=== PATIENT | male | born 2000 | race Caucasian/White ===

== ENCOUNTER 2021-11-30 11:24 | Emergency (ER) | payer OTHER ==
[~2021-11-30] VITALS: Ht 177.8 cm; Wt 91.2 kg
[2021-11-30] MEDS ORDERED: NS 1,000 ML IV ONE (13:05)
[2021-11-30] MEDS ORDERED: ISOVUE-370 76% 100ML VIAL As Ordered ONE (14:31)
[2021-11-30 14:32] LABS: BASO % 0.5 % (0.0-1.0); EOS % 0.5 % (0.0-3.0); HEMATOCRIT 42.4 % (42.0-52.0); HEMOGLOBIN 14.7 g/dl (13.5-17.5); LYMPH # 1.9 10^3/uL (1.5-5.0); LYMPH % 25.3 % (24.0-44.0); MEAN CORPUSCULAR HEMOGLOBIN 30.8 pg (27.0-33.0); MEAN CORPUSCULAR HGB CONC 34.7 g/dl (32.0-36.5); MEAN CORPUSCULAR VOLUME 88.9 fl (80.0-96.0); MONO # 0.6 10^3/uL (0.0-0.8); MONO % 8.4 % (2.0-8.0); NEUTROPHILS # 4.8 10^3/uL (1.5-8.5); NEUTROPHILS % 64.9 % (36.0-66.0); PLATELET COUNT, AUTOMATED 238 10^3/uL (150-450); RED BLOOD COUNT 4.77 10^6/uL (4.30-6.10); WHITE BLOOD COUNT 7.4 10^3/uL (4.0-10.0)
[2021-11-30 14:49] LABS: INR 0.97; PROTHROMBIN TIME 13.3 SECONDS (12.7-14.5)
[2021-11-30 15:02] LABS: ALBUMIN 3.9 GM/DL (3.2-5.2); BILIRUBIN,DIRECT 0.2 MG/DL (0.0-0.2); TOTAL PROTEIN 6.9 GM/DL (6.4-8.2)
[2021-11-30 15:55] VITALS: BP 126/66
== END 2021-11-30 16:00 | disposition home or self-care (01) ==
LOC: M ED 11:24
DX: R19.7 Diarrhea, unspecified (principal); R10.9 Unspecified abdominal pain; R51.9 Headache, unspecified; Z77.098 Contact with and (suspected) exposure to other hazardous, chiefly nonmedicinal, chemicals
CPT/HCPCS: 74177; 80047; 80076; 83690; 85025; 85610; 85730; 96360; 99284; Q9967

== ENCOUNTER 2022-06-17 09:33 | Emergency (ER) | payer OTHER ==
[~2022-06-17] VITALS: Ht 180.3 cm; Wt 101.0 kg
[2022-06-17] MEDS ORDERED: KETOROLAC 30 MG/ML 1ML VIAL IV ONE (15:00)
[2022-06-17] MEDS ORDERED: PANTOPRAZOLE 40MG VIAL IV ONE (15:00)
[2022-06-17] MEDS ORDERED: ONDANSETRON 4MG 2ML VIAL IV ONE (15:00)
[2022-06-17 15:19] LABS: BASO # 0.1 10^3/uL (0.0-0.2); BASO % 0.6 % (0.0-1.0); EOS # 0.1 10^3/uL (0.0-0.5); HEMATOCRIT 45.2 % (42.0-52.0); HEMOGLOBIN 15.4 g/dl (13.5-17.5); LYMPH # 2.9 10^3/uL (1.5-5.0); LYMPH % 29.4 % (24.0-44.0); MEAN CORPUSCULAR HEMOGLOBIN 30.5 pg (27.0-33.0); MEAN CORPUSCULAR HGB CONC 34.1 g/dl (32.0-36.5); MEAN CORPUSCULAR VOLUME 89.5 fl (80.0-96.0); MONO # 0.7 10^3/uL (0.0-0.8); MONO % 7.3 % (2.0-8.0); NEUTROPHILS # 5.9 10^3/uL (1.5-8.5); NEUTROPHILS % 61.2 % (36.0-66.0); PLATELET COUNT, AUTOMATED 270 10^3/uL (150-450); RED BLOOD COUNT 5.05 10^6/uL (4.30-6.10); WHITE BLOOD COUNT 9.7 10^3/uL (4.0-10.0)
[2022-06-17 15:38] LABS: LIPASE 27 U/L (12-53)
[2022-06-17 15:39] LABS: BILIRUBIN,DIRECT 0.1 MG/DL (<0.4)
[2022-06-17 15:40] LABS: ALKALINE PHOSPHATASE 70 U/L (46-116); ALT/SGPT 75 U/L (7.0-40); AST/SGOT 42 U/L (<34); BILIRUBIN,TOTAL 0.5 MG/DL (0.3-1.2); BLOOD UREA NITROGEN 21 MG/DL (9-23); CALCIUM LEVEL 9.1 MG/DL (8.5-10.1); CARBON DIOXIDE LEVEL 27 MMOL/L (20-31); CHLORIDE LEVEL 104 MMOL/L (98-107); CREATININE FOR GFR 0.75 MG/DL (0.70-1.30); GLOMERULAR FILTRATION RATE > 60.0 (>60); GLUCOSE, FASTING 96 MG/DL (60-100); POTASSIUM SERUM 4.2 MMOL/L (3.5-5.1); SODIUM LEVEL 139 MMOL/L (136-145)
[2022-06-17] MEDS ORDERED: ISOVUE-370 76% 100ML VIAL As Ordered ONE (15:51)
[2022-06-17 16:41] VITALS: BP 118/63
== END 2022-06-17 16:48 | disposition home or self-care (01) ==
LOC: M ED 09:33
DX: K62.5 Hemorrhage of anus and rectum (principal); F17.200 Nicotine dependence, unspecified, uncomplicated; F10.10 Alcohol abuse, uncomplicated
CPT/HCPCS: 74177; 80048; 80076; 83690; 85025; 96374; 99284; C9113; J1885; J2405

== ENCOUNTER 2022-09-08 14:41 | Emergency (ER) | payer OTHER ==
[~2022-09-08] VITALS: Ht 172.7 cm; Wt 105.5 kg
[2022-09-08 16:27] VITALS: O2SAT 98
[2022-09-08] MEDS ORDERED: ONDA4TAB6 PO (16:47)
[2022-09-08] MEDS ORDERED: MUCI600T31 PO (16:47)
[2022-09-08] MEDS ORDERED: BENZ200C70 PO (16:47)
[2022-09-08 16:54] VITALS: BP 133/79
== END 2022-09-08 16:57 | disposition home or self-care (01) ==
LOC: M ED 14:41
DX: U07.1 COVID-19 (principal)

== ENCOUNTER 2022-10-08 09:15 | Emergency (ER) | payer OTHER ==
[~2022-10-08] VITALS: Ht 175.3 cm; Wt 108.7 kg
[~2022-10-08 09:15] MED LIST: BENZ200C70 PO; MUCI600T31 PO; ONDA4TAB6 PO
[2022-10-08] MEDS ORDERED: predniSONE 20 MG TAB PO ONE (10:55)
[2022-10-08 11:12] VITALS: BP 165/86
== END 2022-10-08 11:22 | disposition home or self-care (01) ==
LOC: M ED 09:15
DX: K12.2 Cellulitis and abscess of mouth (principal); Z72.0 Tobacco use
CPT/HCPCS: 87880; 99283; J7512